=== PATIENT | male | born 1950 | race Caucasian/White ===

== ENCOUNTER → 2017-07-23 | Outpatient (CLI) | payer OTHER | LOC: FIMAGING 12:45 | PROVIDERS: ATTEND Thoracic Surgery (Cardiothoracic Vascular Surgery) | DX: J90 Pleural effusion, not elsewhere classified (principal); Z95.1 Presence of aortocoronary bypass graft ==

== ENCOUNTER 2017-09-08 05:42 | Inpatient (IN) | payer OTHER ==
[2017-09-08] MEDS ORDERED: LIDOCAINE 1% 2 ML INJ ID PRN (06:00)
[2017-09-08] MEDS ORDERED: LR 1,000 ML IV ONE (06:00)
[2017-09-08] MEDS ORDERED: ceFAZolin 2 GM/SWFI 2 GM/20 ML SYR IVP ONE (06:00)
--- NOTE | 2017-09-08 06:39 | PDGENHP ---
History and Physical - Chief Complaint loculated rt pleural effusion - History of Present Illness 67 yo male with CABG in 2015 complicated by recurrent rt pleural effusions, requiring 2 thoracenteses, evaluated for ongoing SOB and exertional dyspnea and found to have a moderate sized rt pleural effusion with loculations and probable trapped lung. No assoc F/C, malaise, cough or orthopnea. Referred for VATS exploration with evacuation of fluid and probable decortication. History Information - Allergies/Home Medication List Allergies/Adverse Reactions: No Allergies [NKDA] Allergy (Verified 09/01/17 14:00) Unknown SEASONAL Allergy (Intermediate, Uncoded 09/27/15 06:56) SNEEZY, ITCHY EYES Home Medications: Herbals/Supplements -Info Only 1 ea PO DAILY 09/27/15 [Last Taken 09/01/17] Rosuvastatin Calcium [Crestor 20mg (*)] 20 mg PO HS 09/27/15 [Last Taken ] Aspirin EC [Aspirin EC 325 mg (*)] 325 mg PO DAILY 11/20/15 [Last Taken 09/01/17 ] Ramipril [Altace 5mg (*)] 5 mg PO HS 08/25/17 [Last Taken 09/06/17] I have personally reviewed and updated: medical history, social history, surgical history - Past Medical History coronary artery disease, hypertension, hyperlipidemia Additional medical history: mild LVSD (EF 45-50%) by echo in 2016. chronic LBBB. metabolic syndrome - Surgical History Reports: coronary bypass surgery (x3 with bilateral mammaries; prophylactic AtriClip ligation left atrial appendage) - Social History Smoking Status: Never smoked Review of Systems Review of Systems: Constitutional: Reports: no symptoms EENMT: Reports: no symptoms Cardiac: Reports: no symptoms Respiratory: Reports: shortness of breath (1 flight of stairs), wheezing ( occasional) Gastrointestinal: Reports: no symptoms Genitourinary: Reports: no symptoms Muscolosketal: Reports: no symptoms Skin: Reports: no symptoms Neurological: Reports: no symptoms Hematologic/Lymphatic: Reports: no symptoms Immunologic/Allergy: Reports: no symptoms Physical Exam Physical Exam: Temp Pulse Resp BP Pulse Ox 36.6 C 83 18 142/97 H 93 09/08/17 06:12 09/08/17 06:12 09/08/17 06:12 09/08/17 06:12 09/08/17 06:12 Constitutional: no apparent distress Eyes: anicteric sclera Ears, Nose, Mouth, Throat: moist mucous membranes, hearing normal Cardiovascular: regular rate and rhythym, other (Well healed median sternotomy and LLE venotomy) Peripheral Pulses: 2+: dorsalis-pedis (R), dorsalis-pedis (L) Respiratory: other (rt sided crackles) Gastrointestinal: normoactive bowel sounds Skin: warm, normal color Musculoskeletal: other (symmetric tone) Neurologic: AAOx3 Psychiatric: interacting appropriately Lab Data & Imaging Review Patient ABO/Rh A NEGATIVE 09/04/17 13:55 Antibody Screen NEGATIVE 09/04/17 13:55 Imaging Review: CT chest Visualized and Interpreted EKG results: Yes EKG Interpretation: Positive for: left bundle branch block, normal sinsus rhythm Assessment & Plan Assessment: symptomatic loculated rt pleural effusion Plan: VATS evac of fluid, +/- pleurodesis, +/- decortication
[2017-09-08] MEDS ORDERED: MIDAZOLAM 2 MG/2 ML VIAL IVP ONE (07:05)
--- NOTE | 2017-09-08 07:09 | PDANEPAE ---
ANE History of Present Illness 67 year for decortication right lung ANE Past Medical History - Cardiovascular History Hx Hypertension: Yes Hx Arrhythmias: No Hx Chest Pain: No Hx Coronary Artery / Peripheral Vascular Disease: Yes Hx CHF / Valvular Disease: No Hx Palpitations: No - Pulmonary History Hx COPD: No Hx Asthma/Reactive Airway Disease: No Hx Recent Upper Respiratory Infection: No Hx Oxygen in Use at Home: No Hx Sleep Apnea: No Sleep Apnea Screening Result - Last Documented: Negative Pulmonary History Comment: SOB w/activity."air gets trapped in R lung" - Neurologic History Hx Cerebrovascular Accident: No Hx Seizures: No Hx Dementia: No - Endocrine History Hx Diabetes: No - Renal History Hx Renal Disorders: No - Liver History Hx Hepatic Disorders: No - Neurological & Psychiatric Hx Hx Neurological and Psychiatric Disorders: No - Cancer History Hx Cancer: No - Congenital Disorder History Hx Congenital Disorders: No - GI History Hx Gastrointestinal Disorders: No - Other Health History Other Health History: none - Chronic Pain History Chronic Pain: No - Surgical History Prior Surgeries: CABG x3 12-15. RT TOTAL KNEE REVISION. KAVYA TOTAL KNEE. KAVYA KNEE SCOPES. RT SHLDR SCOPE. RT BREAST REMVL LIPOMA. APPY. TONSILLECTOMY. UPPP ANE Review of Systems Review of Systems: - Exercise capacity METS (RN): 3 METS - Systems Respiratory: Reports: shortness of breath ANE Patient History - Allergies Allergies/Adverse Reactions: No Allergies [NKDA] Allergy (Verified 09/01/17 14:00) Unknown SEASONAL Allergy (Intermediate, Uncoded 09/27/15 06:56) SNEEZY, ITCHY EYES - Home Medications Home Medications: Herbals/Supplements -Info Only 1 ea PO DAILY 09/27/15 [Last Taken 09/01/17] Rosuvastatin Calcium [Crestor 20mg (*)] 20 mg PO HS 09/27/15 [Last Taken ] Aspirin EC [Aspirin EC 325 mg (*)] 325 mg PO DAILY 11/20/15 [Last Taken 09/01/17 ] Ramipril [Altace 5mg (*)] 5 mg PO HS 08/25/17 [Last Taken 09/06/17] - NPO status NPO Status: no food or drink >8 hours NPO Since - Liquids (Date): 09/07/17 NPO Since - Liquids (Time): 21:00 NPO Since - Solids (Date): 09/07/17 NPO Since - Solids (Time): 18:00 - Anes Hx Anes Hx: no prior problems - Smoking Hx Smoking Status: Never smoked - Alcohol Use Alcohol Use: Other (1-2 drinks a day) ANE Labs/Vital Signs - Vital Signs Blood Pressure: 142/97 Heart Rate: 83 Respiratory Rate: 18 O2 Sat (%): 93 Height: 182.88 cm Weight: 108.862 kg ANE Physical Exam - Airway Neck exam: FROM Mallampati Score: Class 1 Mouth exam: normal dental/mouth exam - Pulmonary Pulmonary: no respiratory distress, clear to auscultation - Cardiovascular Cardiovascular: regular rate and rhythym - ASA Status ASA Status: III ANE Anesthesia Plan Anesthesia Plan: general endotracheal anesthesia Specialized Airway: double lumen tube (Thorasic Epidural)
[2017-09-08] MEDS ORDERED: BUPIVACAINE 0.25% 30 ML SDV ONE ×3 (07:19→12:04)
[2017-09-08] MEDS ORDERED: fentaNYL 100 MCG/2 ML INJ ONE ×2 (07:24→14:13)
[2017-09-08] MEDS ORDERED: PROPOFOL 200 MG/20 ML VIAL ONE (07:24)
[2017-09-08] MEDS ORDERED: ONDANSETRON 4 MG/2 ML VIAL IVP PRN ×2 (08:46→13:59)
[2017-09-08] MEDS ORDERED: NARCOTIC DRIP BAG-TOTAL ALL TYPES EP PRN (08:46)
[2017-09-08] MEDS ORDERED: NALOXONE HCL 0.4 MG/ML INJ IVP PRN ×2 (08:46→13:59)
[2017-09-08] MEDS ORDERED: fentaNYL 50 MCG PATCH TD ONE (11:00)
[2017-09-08] MEDS ORDERED: KETOROLAC 30 MG/1 ML SDV IVP PRN (11:00)
[2017-09-08] MEDS ORDERED: THROMBIN(HUM PLAS)/FIBRINOG/CA 5 ML VIAL TP ONE ×2 (11:14→11:19)
[2017-09-08] MEDS ORDERED: ceFAZolin 1 GM VIAL ONE ×2 (12:11)
[2017-09-08] MEDS ORDERED: BISACODYL 10 MG SUPP PR PRN (13:45)
[2017-09-08] MEDS ORDERED: MAGNESIUM HYDROXIDE 30 ML UDCUP PO PRN (13:45)
[2017-09-08] MEDS ORDERED: POLYETHYLENE GLYCOL 3350 17 GM PKT PO PRN (13:45)
[2017-09-08] MEDS ORDERED: LACTULOSE 20 GM/30 ML UDCUP PO PRN (13:45)
[2017-09-08] MEDS ORDERED: HYDROmorphONE/DILAUDID 1 MG/ML INJ IVP PRN (13:59)
[2017-09-08] MEDS ORDERED: PROMETHAZINE HCL 25 MG/ML INJ IVP PRN (13:59)
[2017-09-08] MEDS ORDERED: ceFAZolin 2 GM/DEXTROSE 100 ML IV SCH (14:00)
--- NOTE | 2017-09-08 14:01 | POSTANESTH ---
Post Anesthetic Evaluation Cardiovascular Status: Normal, Stable Respiratory Status: Normal, Stable Level of Consciousness/Mental Status: Can Participate in Eval, Mildly Sleepy, Arousable Pain Control: Adequate, Prn Tx Ordered Nausea/Vomiting Control: Adequate, Prn Tx Ordered Complications Possibly Related to Anesthesia: None Noted
[2017-09-08] MEDS ORDERED: HYDROmorphONE/DILAUDID 1 MG/ML INJ ONE (14:14)
[2017-09-08] MEDS: fentaNYL 100 MCG/2 ML INJ IVP PRN ×2 (14:16→14:40)
[2017-09-08 14:50] LABS: HEMATOCRIT 44.2 % (40.0-51.0)
[2017-09-08] MEDS ORDERED: HYDROmorphone HCL/NS/PF 0.4 MG/2 ML SYR IVP PRN (16:36)
[2017-09-08] MEDS: DC NARCS MISC SCH (17:34)
[2017-09-08] MEDS: REGARDING ANTICOAG MISC SCH (17:35)
[2017-09-08] MEDS ORDERED: ceFAZolin 2 GM in D5W 100 ML IV SCH (20:00)
[2017-09-08] MEDS: ceFAZolin 2 GM/DEXTROSE 100 ML IV SCH (20:29)
[2017-09-08] MEDS ORDERED: RAMIPRIL 5 MG CAP PO SCH (21:00)
[2017-09-08] MEDS: HYDROmorph 10MCG/ML&BUP 0.0625% in 100ML NS EP SCH (22:25)
[2017-09-09] MEDS: ceFAZolin 2 GM/DEXTROSE 100 ML IV SCH (03:39)
[2017-09-09 06:01] LABS: HEMATOCRIT 44.6 % (40.0-51.0); HEMOGLOBIN 14.9 g/dL (13.7-17.5)
[2017-09-09 06:14] LABS: ANION GAP 14 mEq/L (8-16); CALCIUM 8.3 mg/dL (8.5-10.4); CARBON DIOXIDE 21 mEq/l (22-31); CHLORIDE 104 mEq/L (97-110); CREATININE 1.6 mg/dL (0.7-1.3); GLOMERULAR FILTRATION RATE 43; GLUCOSE 114 mg/dL (70-100); POTASSIUM 5.4 mEq/L (3.5-5.2); SODIUM 139 mEq/L (134-144)
--- NOTE | 2017-09-09 07:34 | SOAPPROG ---
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 Feels a little weird d/t narcotics. Pain well-controlled. Hopeful for ETOH tonight as drinks nightly. Denies agitation. Objective: Vital Signs Temp Pulse Resp BP Pulse Ox 37.1 C 61 14 140/70 H 91 L 09/09/17 07:00 09/09/17 07:00 09/09/17 07:00 09/09/17 07:00 09/09/17 07:00 Laboratory Results 09/09/17 04:45 09/09/17 04:45 09/08/17 09/09/17 09/10/17 05:59 05:59 05:59 Intake Total 3420 Output Total 1340 Balance 2080 Physical Exam - Physical Exam General Appearance: WD/WN, alert, no apparent distress EENT: No scleral icterus (R), No scleral icterus (L) Neck: normal inspection Respiratory: other (CT with air leak ), No respiratory distress Cardiac/Chest: regular rate, rhythm Abdomen: non-tender, soft, No distended Skin: normal color, warm/dry Extremities: No pedal edema Neuro/Psych: no motor/sensory deficits, alert, normal mood/affect, oriented x 3 ICD10 Worksheet Patient Problems: Problems Problem Status Onset CAD (coronary artery disease), [place] coronary artery Acute Pericardial effusion without cardiac tamponade Acute Pleural effusion, right Acute S/P CABG x 3 Acute Dyslipidemia Chronic HTN (hypertension) Chronic
[2017-09-09] MEDS: NS 1,000 ML IV SCH ×2 (08:45→17:05)
[2017-09-09] MEDS: REGARDING ANTICOAG MISC SCH (08:47)
[2017-09-09] MEDS: DC NARCS MISC SCH (08:47)
[2017-09-09] MEDS: HYDROmorph 10MCG/ML&BUP 0.0625% in 100ML NS EP SCH ×2 (08:57→20:57)
[2017-09-09] MEDS ORDERED: ONDANSETRON 4 MG/2 ML VIAL ONE (09:54)
[2017-09-09] MEDS ORDERED: ONDANSETRON 4 MG/2 ML VIAL IVP PRN (10:03)
--- NOTE | 2017-09-09 10:26 | SOAPPROG ---
SOAP Progress Note Assessment/Plan: Assessment: Pt is POD #1 S/P thoracotomy. Thorasic epidural running for post op pain control. Good pain control but some nausea. Plan: Continue epidural. Decrease in fusion rate from 8 to 7. D/C fentanyl patch. PRN fentanyl if pain increases, then reapply patch. PRN zofran. 09/09/17 10:18 Subjective: Pt reports pain 1/10, some nausea, feels sleepy Objective: Vital Signs Temp Pulse Resp BP Pulse Ox 36.9 C 75 16 105/74 96 09/09/17 09:00 09/09/17 09:00 09/09/17 09:00 09/09/17 09:00 09/09/17 09:00 Laboratory Results 09/09/17 04:45 09/09/17 04:45 09/08/17 09/09/17 09/10/17 05:59 05:59 05:59 Intake Total 3420 300 Output Total 1340 Balance 2080 300 Epidural site clean, nontender, dressing intact - Time Spent With Patient Time Spent With Patient: 30 min ICD10 Worksheet Patient Problems: Problems Problem Status Onset CAD (coronary artery disease), [place] coronary artery Acute Pericardial effusion without cardiac tamponade Acute Pleural effusion, right Acute S/P CABG x 3 Acute Dyslipidemia Chronic HTN (hypertension) Chronic
[2017-09-09] MEDS ORDERED: fentaNYL 100 MCG/2 ML INJ IVP PRN (10:32)
[2017-09-09] MEDS: ASPIRIN EC 325 MG TAB PO SCH (12:00)
[2017-09-09 13:08] LABS: POTASSIUM 5.1 mEq/L (3.5-5.2)
--- NOTE | 2017-09-09 13:23 | ASMTCMCOM ---
CM Note CM Note Notes: 09/09/2017 Case Management Note Reviewed chart, spoke w/RN. No case management d/c needs identified d/t pt age, marital status and activity levels prior to admission. There are no PT or OT evals ordered. Anticipating d/c later in the week, pt has chest tube today. Case management d/c poc: Home independent when medically stable with follow up as directed. Case management available if needs change. Date Signed: 09/09/2017 01:23 PM Electronically Signed By:Ana Valenzuela RN
[2017-09-09] MEDS: BEER 1 EACH EA PO SCH ×2 (14:23→19:00)
[2017-09-09] MEDS: HEPARIN 5,000 UNIT/0.5 ML SYR SC SCH ×2 (16:00→21:01)
[2017-09-09] MEDS ORDERED: ZOLPIDEM TARTRATE 5 MG TAB PO PRN (20:40)
[2017-09-09] MEDS ORDERED: MELATONIN 3 MG TAB PO PRN (20:40)
[2017-09-09 20:42] LABS: POTASSIUM 4.6 mEq/L (3.5-5.2)
[2017-09-09] MEDS: ROSUVASTATIN CALCIUM 20 MG TAB PO SCH (20:58)
[2017-09-09] MEDS: SENNOSIDES/DOCUSATE SODIUM TAB PO PRN (20:58)
[2017-09-10] MEDS: NS 1,000 ML IV SCH (02:07)
[2017-09-10 03:36] LABS: ANION GAP 8 mEq/L (8-16); CALCIUM 7.9 mg/dL (8.5-10.4); CARBON DIOXIDE 26 mEq/l (22-31); CHLORIDE 101 mEq/L (97-110); CREATININE 0.9 mg/dL (0.7-1.3); GLOMERULAR FILTRATION RATE > 60; GLUCOSE 98 mg/dL (70-100); POTASSIUM 4.8 mEq/L (3.5-5.2); SODIUM 135 mEq/L (134-144)
[2017-09-10] MEDS: HYDROmorph 10MCG/ML&BUP 0.0625% in 100ML NS EP SCH ×2 (07:56→19:59)
--- NOTE | 2017-09-10 08:17 | SOAPPROG ---
SOAP Progress Note Assessment/Plan: Assessment: Plan: 09/10/17 08:15 CXR w/o ptx pain controlled will leave epidural until tomorrow resume sq heparin air leak w cough Objective: Vital Signs Temp Pulse Resp BP Pulse Ox 36.6 C 99 16 106/79 96 09/10/17 08:00 09/10/17 08:00 09/10/17 08:00 09/10/17 08:00 09/10/17 08:00 Laboratory Results 09/09/17 04:45 09/10/17 03:10 09/09/17 09/10/17 09/11/17 05:59 05:59 05:59 Intake Total 3420 5250 Output Total 1340 1645 Balance 2080 3605 ICD10 Worksheet Patient Problems: Problems Problem Status Onset CAD (coronary artery disease), [place] coronary artery Acute Pericardial effusion without cardiac tamponade Acute Pleural effusion, right Acute S/P CABG x 3 Acute Dyslipidemia Chronic HTN (hypertension) Chronic
[2017-09-10] MEDS: DC NARCS MISC SCH (09:06)
[2017-09-10] MEDS: REGARDING ANTICOAG MISC SCH (09:06)
[2017-09-10] MEDS: ASPIRIN EC 325 MG TAB PO SCH (09:06)
[2017-09-10] MEDS: BEER 1 EACH EA PO SCH ×2 (15:08→21:14)
[2017-09-10] MEDS: HEPARIN 5,000 UNIT/0.5 ML SYR SC SCH ×2 (15:08→19:59)
--- NOTE | 2017-09-10 15:22 | SOAPPROG ---
SOAP Progress Note Assessment/Plan: Assessment: Pt is POD #1 S/P thoracotomy. Thorasic epidural running for post op pain control. Good pain control but some nausea. Plan: Continue epidural. Decrease in fusion rate from 8 to 7. D/C fentanyl patch. PRN fentanyl if pain increases, then reapply patch. PRN zofran. 09/09/17 10:18 09/10/17 15:20 Plan continue epidural for pain control at current settings. Possible D/C tomorrow Subjective: Pt reports excellent pain control, no nausea and clear head Objective: Vital Signs Temp Pulse Resp BP Pulse Ox 37.1 C 77 16 95/66 L 95 09/10/17 11:58 09/10/17 11:58 09/10/17 11:58 09/10/17 11:58 09/10/17 11:58 Laboratory Results 09/09/17 04:45 09/10/17 03:10 09/09/17 09/10/17 09/11/17 05:59 05:59 05:59 Intake Total 3420 5250 Output Total 1340 1645 300 Balance 2080 3605 -300 Epidural site clean, dressing intact, nontender. Pt A&O X 3 - Time Spent With Patient Time Spent With Patient: 20 minutes ICD10 Worksheet Patient Problems: Problems Problem Status Onset CAD (coronary artery disease), [place] coronary artery Acute Pericardial effusion without cardiac tamponade Acute Pleural effusion, right Acute S/P CABG x 3 Acute Dyslipidemia Chronic HTN (hypertension) Chronic
--- NOTE | 2017-09-10 18:32 | GOP ---
[f rep st] OPERATIVE REPORT DATE OF OPERATION: 09/08/2017 SURGEON: Davis Monsalve DO MAGAZINE WRITER: Nay Rucker PA-C ANESTHESIOLOGIST: Mazin Lake MD. PREOPERATIVE DIAGNOSIS: A trapped lung in the right chest. POSTOPERATIVE DIAGNOSIS: A trapped lung in the right chest. PROCEDURE PERFORMED: Right thoracotomy, video-assisted, with extensive decortication. Approximately 6 hours were spent intraoperatively decorticating and was extremely complicated. FINDINGS: DESCRIPTION OF PROCEDURE: Patient had undergone previous coronary artery bypass grafting approximately a year and a half prior. He had a delayed recurrent right pleural effusion, which was not addressed. He presented with a trapped lung one year later. He was consented, brought to the operating room, intubated, and monitoring lines were placed. He was prepped and draped in sterile classical manner in the lateral decubitus position. I then performed a muscle-sparing 6th intercostal space mini-thoracotomy in the anterior axillary line. I then spent a great deal of time identifying structures and diaphragm. There was a half-inch firm fibrinous peel. There was approximately 500 cc of fluid in there. I spent approximately 6 hours identifying mediastinal structures. The patient had a previous right internal mammary artery and we had to avoid that as well. We were then able to free up the entire lung and decorticated to get full re-expansion. There were several sites were the peel was adherent to the lung. We just made linear hash tag crisscrossing incisions down into the lung to allow it to expand. The lung was fully re-expanded. When completed, the chamber was copiously irrigated. Two chest tubes were placed. Sternal wires were used to approximate the intercostal spaces because of this patient's large size and powerful build. Muscle and subcu were closed in standard fashion. It should be noted, Marcaine was used to infiltrate the intercostal spaces as well as we cryo-ablated 4 levels of intercostal nerve for intermediate pain control. The skin was closed in a standard fashion. Patient was returned to recovery room in stable condition. /[id number]/MODL MTDD
[2017-09-10] MEDS: ROSUVASTATIN CALCIUM 20 MG TAB PO SCH (19:58)
[2017-09-11 04:14] LABS: POTASSIUM 4.3 mEq/L (3.5-5.2)
--- NOTE | 2017-09-11 07:58 | SOAPPROG ---
SOAP Progress Note Assessment/Plan: Assessment: Plan: 09/10/17 08:15 CXR w/o ptx pain controlled will leave epidural until tomorrow resume sq heparin air leak w cough 09/11/17 07:57 CXR good pain controlled, Dr Lake to manage epidural/sq heparin no air leak, DC suction ambulate, stay out of bed Objective: Vital Signs Temp Pulse Resp BP Pulse Ox 37.1 C 82 16 103/69 95 09/11/17 07:00 09/11/17 07:00 09/11/17 07:00 09/11/17 07:00 09/11/17 07:00 Laboratory Results 09/09/17 04:45 09/11/17 03:38 09/10/17 09/11/17 09/12/17 05:59 05:59 05:59 Intake Total 5250 620 Output Total 8488 1415 Balance 3545 -913 ICD10 Worksheet Patient Problems: Problems Problem Status Onset CAD (coronary artery disease), [place] coronary artery Acute Pericardial effusion without cardiac tamponade Acute Pleural effusion, right Acute S/P CABG x 3 Acute Dyslipidemia Chronic HTN (hypertension) Chronic
[2017-09-11] MEDS: fentaNYL 50 MCG PATCH TD SCH (08:11)
[2017-09-11] MEDS: HYDROmorph 10MCG/ML&BUP 0.0625% in 100ML NS EP SCH (08:14)
--- NOTE | 2017-09-11 09:49 | SOAPPROG ---
SOAP Progress Note Assessment/Plan: Assessment: Pt is POD #1 S/P thoracotomy. Thorasic epidural running for post op pain control. Good pain control but some nausea. Plan: Continue epidural. Decrease in fusion rate from 8 to 7. D/C fentanyl patch. PRN fentanyl if pain increases, then reapply patch. PRN zofran. 09/09/17 10:18 09/10/17 15:20 Plan continue epidural for pain control at current settings. Possible D/C tomorrow 09/11/17 09:50 Epidural d/jerome. Catheter removed with tip intact. Oral pain meds available per surgery team. fentanyl patch placed per surgery team. Subjective: Pt reports good pain control after epidural turned down to 3 and fentanyl patch applied. No nausea. Feels alert. Good spirits. Objective: Vital Signs Temp Pulse Resp BP Pulse Ox 37.1 C 82 16 103/69 95 09/11/17 07:00 09/11/17 07:00 09/11/17 07:00 09/11/17 07:00 09/11/17 07:00 Laboratory Results 09/09/17 04:45 09/11/17 03:38 09/10/17 09/11/17 09/12/17 05:59 05:59 05:59 Intake Total 5250 620 Output Total 1645 1415 Balance 3605 -795 Epidural site clean with dressing intact. Nontender - Time Spent With Patient Time Spent With Patient: 15 min ICD10 Worksheet Patient Problems: Problems Problem Status Onset CAD (coronary artery disease), [place] coronary artery Acute Pericardial effusion without cardiac tamponade Acute Pleural effusion, right Acute S/P CABG x 3 Acute Dyslipidemia Chronic HTN (hypertension) Chronic
[2017-09-11] MEDS: BEER 1 EACH EA PO SCH ×2 (11:54→19:52)
[2017-09-11] MEDS: REGARDING ANTICOAG MISC SCH (11:55)
[2017-09-11] MEDS: DC NARCS MISC SCH (11:55)
[2017-09-11] MEDS: ASPIRIN EC 325 MG TAB PO SCH (15:10)
[2017-09-11] MEDS: HEPARIN 5,000 UNIT/0.5 ML SYR SC SCH ×2 (15:10→20:50)
[2017-09-11] MEDS: ROSUVASTATIN CALCIUM 20 MG TAB PO SCH (20:50)
[2017-09-12 04:51] LABS: POTASSIUM 4.4 mEq/L (3.5-5.2)
[2017-09-12] MEDS: HEPARIN 5,000 UNIT/0.5 ML SYR SC SCH ×3 (04:56→20:53)
--- NOTE | 2017-09-12 09:48 | SOAPPROG ---
SOAP Progress Note Assessment/Plan: Assessment: Plan: 09/10/17 08:15 CXR w/o ptx pain controlled will leave epidural until tomorrow resume sq heparin air leak w cough 09/11/17 07:57 CXR good pain controlled, Dr Lake to manage epidural/sq heparin no air leak, DC suction ambulate, stay out of bed 09/12/17 09:47 no pain no air leak, but fluctuation in tube, will resume suction when not ambulating CXR as expected, no ptx Objective: Vital Signs Temp Pulse Resp BP Pulse Ox 37.0 C 77 18 112/76 89 L 09/12/17 08:00 09/12/17 08:00 09/12/17 08:00 09/12/17 08:00 09/12/17 08:00 Laboratory Results 09/09/17 04:45 09/12/17 04:23 09/11/17 09/12/17 09/13/17 05:59 05:59 05:59 Intake Total 620 900 Output Total 0370 1295 Balance -795 -395 ICD10 Worksheet Patient Problems: Problems Problem Status Onset CAD (coronary artery disease), [place] coronary artery Acute Pericardial effusion without cardiac tamponade Acute Pleural effusion, right Acute S/P CABG x 3 Acute Dyslipidemia Chronic HTN (hypertension) Chronic
[2017-09-12] MEDS: ASPIRIN EC 325 MG TAB PO SCH (10:20)
--- NOTE | 2017-09-12 10:57 | ASMTCMCOM ---
CM Note CM Note Notes: 09/12/2017 Case Management Note Discussed with RN, reviewed chart. Pt ambulates without difficulty. CT to suction today. There are no PT or OT evals ordered. Case Management d/c poc: remains home independent when medically stable. Case Managment available if needs change. Date Signed: 09/12/2017 10:56 AM Electronically Signed By:Ana Valenzuela RN
[2017-09-12] MEDS: BEER 1 EACH EA PO SCH ×2 (11:03→18:20)
[2017-09-12] MEDS: OXYCODONE/APAP 5/325 TAB PO PRN ×3 (11:57→22:55)
[2017-09-12] MEDS: SENNOSIDES/DOCUSATE SODIUM TAB PO PRN (15:50)
[2017-09-12] MEDS: ROSUVASTATIN CALCIUM 20 MG TAB PO SCH (20:53)
[2017-09-13] MEDS: HEPARIN 5,000 UNIT/0.5 ML SYR SC SCH ×3 (06:03→21:05)
[2017-09-13] MEDS: OXYCODONE/APAP 5/325 TAB PO PRN ×2 (06:49→17:20)
[2017-09-13] MEDS: BEER 1 EACH EA PO SCH ×2 (07:49→21:03)
[2017-09-13] MEDS: ASPIRIN EC 325 MG TAB PO SCH (07:49)
--- NOTE | 2017-09-13 10:36 | SOAPPROG ---
SOAP Progress Note Assessment/Plan: Assessment: Plan: 09/10/17 08:15 CXR w/o ptx pain controlled will leave epidural until tomorrow resume sq heparin air leak w cough 09/11/17 07:57 CXR good pain controlled, Dr Lake to manage epidural/sq heparin no air leak, DC suction ambulate, stay out of bed 09/12/17 09:47 no pain no air leak, but fluctuation in tube, will resume suction when not ambulating CXR as expected, no ptx 09/13/17 10:35 no pain VSS 190 cc serous, no air leak, CXR stable clamp CT, DC am if CXR ok and DC Objective: Vital Signs Temp Pulse Resp BP Pulse Ox 36.8 C 74 16 104/69 80 L 09/13/17 07:16 09/13/17 07:16 09/13/17 07:16 09/13/17 07:16 09/13/17 09:43 Laboratory Results 09/09/17 04:45 09/12/17 04:23 09/12/17 09/13/17 09/14/17 05:59 05:59 05:59 Intake Total 900 800 Output Total 1295 190 Balance -395 610 ICD10 Worksheet Patient Problems: Problems Problem Status Onset CAD (coronary artery disease), [place] coronary artery Acute Pericardial effusion without cardiac tamponade Acute Pleural effusion, right Acute S/P CABG x 3 Acute Dyslipidemia Chronic HTN (hypertension) Chronic
[2017-09-13] MEDS: traMADol 50 MG TAB PO PRN (21:03)
[2017-09-13] MEDS: ROSUVASTATIN CALCIUM 20 MG TAB PO SCH (21:05)
[2017-09-13 23:04] VITALS: RESP 16
[2017-09-14] MEDS: OXYCODONE/APAP 5/325 TAB PO PRN (01:07)
[2017-09-14] MEDS: traMADol 50 MG TAB PO PRN (06:42)
[2017-09-14] MEDS: HEPARIN 5,000 UNIT/0.5 ML SYR SC SCH (06:43)
[2017-09-14] MEDS: BEER 1 EACH EA PO SCH (07:00)
[2017-09-14 07:21] VITALS: BP 120/76; PULSE 77; TEMP 98.4
[2017-09-14] MEDS: fentaNYL 50 MCG PATCH TD SCH (07:46)
[2017-09-14] MEDS: ASPIRIN EC 325 MG TAB PO SCH (07:46)
[2017-09-14] MEDS ORDERED: KETOROLAC 30 MG/1 ML SDV IVP ONE (08:15)
--- NOTE | 2017-09-14 08:29 | SOAPPROG ---
SOAP Progress Note Assessment/Plan: Assessment: Plan: 09/10/17 08:15 CXR w/o ptx pain controlled will leave epidural until tomorrow resume sq heparin air leak w cough 09/11/17 07:57 CXR good pain controlled, Dr Lake to manage epidural/sq heparin no air leak, DC suction ambulate, stay out of bed 09/12/17 09:47 no pain no air leak, but fluctuation in tube, will resume suction when not ambulating CXR as expected, no ptx 09/13/17 10:35 no pain VSS 190 cc serous, no air leak, CXR stable clamp CT, DC am if CXR ok and DC 09/14/17 08:28 doing well CXR stable w tubes clamped, DCd DC home, CXR/ follow up Friday CXR Objective: Vital Signs Temp Pulse Resp BP Pulse Ox 36.9 C 77 16 120/76 95 09/14/17 07:14 09/14/17 07:14 09/14/17 07:14 09/14/17 07:14 09/14/17 07:14 Laboratory Results 09/09/17 04:45 09/12/17 04:23 09/13/17 09/14/17 09/15/17 05:59 05:59 05:59 Intake Total 800 400 Output Total 190 300 Balance 610 100 ICD10 Worksheet Patient Problems: Problems Problem Status Onset CAD (coronary artery disease), [place] coronary artery Acute Pericardial effusion without cardiac tamponade Acute Pleural effusion, right Acute S/P CABG x 3 Acute Dyslipidemia Chronic HTN (hypertension) Chronic
[2017-09-14 08:56] VITALS: O2SAT 80
--- NOTE | 2017-09-14 08:56 | PDHOMEO2F ---
Home Oxygen Face to Face Home Orders: I certify that a physician or a nurse practitioner or physician's education administrative assistant has had a [id number] encounter with this patient on the date of this order due to the diagnosis listed, which relates to the primary reason the patient requires home oxygen. Alternative treatments have been tried, or considered, and deemed ineffective. It is anticipated that supplemental oxygen will result in improvement with treatment. Home oxygen qualifying diagnosis: CAD Home oxygen secondary diagnosis: trapped lung SpO2 on room air (%): <86% Frequency of home oxygen needed: continuous Home oxygen liters per minute: 2 Home oxygen delivery device: nasal cannula Concentrator: Yes E-tanks for mobility and back up: Yes If ordering portable O2, is the patient mobile in the home?: Yes I certify that, based on these findings, the home oxygen is medically necessary for this patient for the following length of time. Length of time home oxygen needed: 1 month
--- NOTE | 2017-09-14 12:49 | PDDCSUM ---
Discharge Summary Discharge Summary: DATE OF ADMISSION: 09/08/17 DATE OF DISCHARGE: 09/14/17 DISPOSITION: Home, self care PRINCIPAL ADMISSION DIAGNOSIS: Loculated right pleural effusion with trapped lung PRINCIPAL DISCHARGE DIAGNOSES: Status post right thoracotomy with evacuation of pleural fluid and extensive decortication HISTORY OF PRESENT ILLNESS: 67 yo male with CABG in 2015 complicated by recurrent right sided pleural effusions, evaluated for ongoing exertional dyspnea and found to have a small to moderate sized right pleural effusion with loculations and pleural thickening. Suspected to have trapped lung and admitted for elective decortication. PERTINENT PAST MEDICAL HISTORY: CABG x 3 (KAMARA-RI, free TEN-AM, SV-OM1) 09/27/15 with 1400 ml rt thoracentesis on 11/21/15 and 500 ml rt thoracentesis on 01/24/16; CAD with mild cardiomyopathy (EF 45-50%), chronic LBBB, HTN, dyslipidemia, metabolic syndrome MEDICATIONS ON ADMISSION: ASA 325 mg daily, Crestor 20 mg HS, Ramipril 5 mg HS, herbal supplement daily ALLERGIES/SENSITIVITIES: NKDA CONSULTANTS: none PROCEDURES/IMAGIN09/08/17 (Gricel): Right thoracotomy with video assisted decortication of right lung and drainage of pleural fluid. Thoracic epidural per anesthesia. ABBREVIATED HOSPITAL COURSE BY ACTIVE PROBLEM LIST: 1. Trapped right lung - Successful re-expansion post decortication. Extubated in the OR. Pain well controlled with epidural and multimodal analgesia. No significant air leak or delay in chest tube removal. 2. Stable CAD/ISCM - Secondary prevention with ASA and statin. BP relatively low on narcotic analgesics and ACEI held. DISCHARGE MEDICATIONS: As on admission with the following adjustments: 1. Hold Ramipril until SBP consistently > 120 NEW prescriptions: 1. Duragesic patch 50 mcg, applied 09/14/17 2. Tramadol 50-100 mg q 6hr prn incisional discomfort. 3. Oxygen continuously @ 2 Lpm, or as directed by SpO2. FOLLOW UP APPOINTMENTS: 1. CV surgery: with Dr Monsalve at [facility] on 09/16/17. Office to call with appointment time. FOLLOW UP TESTING: CXR prior to surgical appointment.
--- NOTE | 2017-09-14 13:55 | ASDISCHSUM ---
Discharge Information Plan Status:Home with No Needs Medically Cleared to Leave:09/13/2017 Discharge Date:09/14/2017 12:25 PM CM D/C Disposition:Home, Routine, Self-Care ADT D/C Disposition:Home, Routine, Self-Care Projected Discharge Date:09/14/2017 12:25 PM Transportation at D/C:Family Discharge Delay Reason: Follow-Up Date:09/14/2017 12:25 PM Discharge Slot: Final Diagnosis: Placement Information Patient Contact Information Contact Name:GALINDO Relationship: Address:[address] [facility] City:[place] Alternate Phone: State/Zip Code:[place] [address] Email: Financial Information Financial Class: Primary Plan Desc:MEDICARE INPATIENT Primary Plan Number:[id number] Secondary Plan Desc:PROSPER Secondary Plan Number:[id number] Assessment Information [facility] CM Progress Note CM Note CM Note Notes: 09/09/2017 Case Management Note Reviewed chart, spoke w/RN. No case management d/c needs identified d/t pt age, marital status and activity levels prior to admission. There are no PT or OT evals ordered. Anticipating d/c later in the week, pt has chest tube today. Case management d/c poc: Home independent when medically stable with follow up as directed. Case management available if needs change. Date Signed: 09/09/2017 01:23 PM Electronically Signed By:Ana Valenzuela RN [facility] CM Progress Note CM Note CM Note Notes: 09/12/2017 Case Management Note Discussed with RN, reviewed chart. Pt ambulates without difficulty. CT to suction today. There are no PT or OT evals ordered. Case Management d/c poc: remains home independent when medically stable. Case Managment available if needs change. Date Signed: 09/12/2017 10:56 AM Electronically Signed By:Ana Valenzuela RN Case Management Discharge Plan Note Case Management Discharge Discharge Order Complete? Answers: Yes Patient to Obtain Answers: Independently Medications Transportation Arranged Answers: Family/Friends Discharge Comments Notes: Pt discharging home today. No CM needs identifiied. Date Signed: 09/14/2017 01:52 PM Electronically Signed By:ALEXANDRIA Martin Intervention Information
== END 2017-09-14 12:25 | disposition home or self-care (01) | DRG 165 ==
LOC: F3E 05:42 → F2W 16:02
PROVIDERS: ADMIT Thoracic Surgery (Cardiothoracic Vascular Surgery); ATTEND Thoracic Surgery (Cardiothoracic Vascular Surgery)
PROC: 0W9930Z Drainage of Right Pleural Cavity with Drainage Device, Percutaneous Approach (ICD-10-PCS; principal; 2017-09-08 07:15)
PROC: 3E0S3BZ Introduction of Anesthetic Agent into Epidural Space, Percutaneous Approach (ICD-10-PCS; principal; 2017-09-08 07:15)
PROC: 0BNK0ZZ Release Right Lung, Open Approach (ICD-10-PCS; principal; 2017-09-08 07:15)
DX: J90 Pleural effusion, not elsewhere classified (principal); I25.10 Atherosclerotic heart disease of native coronary artery without angina pectoris; I10 Essential (primary) hypertension; E78.5 Hyperlipidemia, unspecified; Z95.1 Presence of aortocoronary bypass graft
CPT/HCPCS: J0171; J0690; J1170; J1885; J2250; J2405; J2704; J3010

== ENCOUNTER → 2017-09-16 | Outpatient (CLI) | payer OTHER | LOC: FIMAGING 10:51 | PROVIDERS: ATTEND Thoracic Surgery (Cardiothoracic Vascular Surgery) | DX: J98.19 Other pulmonary collapse (principal); Z09 Encounter for follow-up examination after completed treatment for conditions other than malignant neoplasm ==

== ENCOUNTER → 2017-09-23 | Outpatient (CLI) | payer OTHER | LOC: FIMAGING 10:40 | PROVIDERS: ATTEND Thoracic Surgery (Cardiothoracic Vascular Surgery) | DX: J94.8 Other specified pleural conditions (principal); Z98.890 Other specified postprocedural states ==

== ENCOUNTER → 2017-10-07 | Outpatient (CLI) | payer OTHER | LOC: FIMAGING 10:44 | PROVIDERS: ATTEND Thoracic Surgery (Cardiothoracic Vascular Surgery) | DX: J94.8 Other specified pleural conditions (principal) ==

== ENCOUNTER → 2017-11-18 | Outpatient (CLI) | payer OTHER | LOC: FIMAGING 10:15 | PROVIDERS: ATTEND Thoracic Surgery (Cardiothoracic Vascular Surgery) | DX: Z09 Encounter for follow-up examination after completed treatment for conditions other than malignant neoplasm (principal); Z98.890 Other specified postprocedural states ==

== ENCOUNTER 2018-02-24 05:46 | Day surgery (SDC) | payer OTHER ==
[2018-02-24] MEDS ORDERED: ceFAZolin 2 GM/SWFI 2 GM/20 ML SYR IVP ONE (06:07)
[2018-02-24] MEDS ORDERED: LR 1,000 ML IV ONE (06:08)
[2018-02-24] MEDS ORDERED: LIDOCAINE 1% 2 ML INJ ID PRN (06:08)
--- NOTE | 2018-02-24 06:57 | PDGENHP ---
History & Physical Chief Complaint: sternal pain History of Present Illness: s/p remote CABG with sternal pain here for sternal wire removal Pertinent Past, Social, Family History: CABG Relevant Physical Exam: NAD/WN/WD. S1S2, sternotomy well-healed, TTP midline. No resp distress. ND, soft, NTP. LE without edema BL
--- NOTE | 2018-02-24 07:05 | PDANEPAE ---
ANE History of Present Illness Patient presents for sternal wire removal. ANE Past Medical History - Cardiovascular History Hx Hypertension: Yes Hx Arrhythmias: No Hx Chest Pain: No Hx Coronary Artery / Peripheral Vascular Disease: Yes Hx CHF / Valvular Disease: No Hx Palpitations: No Cardiovascular History Comment: cabg x 3 2015 - Pulmonary History Hx COPD: No Hx Asthma/Reactive Airway Disease: Yes Hx Recent Upper Respiratory Infection: No Hx Oxygen in Use at Home: No Hx Sleep Apnea: Yes Sleep Apnea Screening Result - Last Documented: Positive Pulmonary History Comment: SOB w/activity."air gets trapped in R lung" - Neurologic History Hx Cerebrovascular Accident: No Hx Seizures: No Hx Dementia: No - Endocrine History Hx Diabetes: No - Renal History Hx Renal Disorders: No - Liver History Hx Hepatic Disorders: No - Neurological & Psychiatric Hx Hx Neurological and Psychiatric Disorders: No - Cancer History Hx Cancer: No - Congenital Disorder History Hx Congenital Disorders: No - GI History Hx Gastrointestinal Disorders: No - Other Health History Other Health History: none - Chronic Pain History Chronic Pain: Yes (right shoulder) - Surgical History Prior Surgeries: CABG x3 -15. RT TOTAL KNEE REVISION. KAVYA TOTAL KNEE. KAVYA KNEE SCOPES. RT SHLDR SCOPE. RT BREAST REMVL LIPOMA. APPY. TONSILLECTOMY. UPPP ANE Review of Systems Review of Systems: - Exercise capacity Exercise capacity: >=4 METS METS (RN): 5 METS ANE Patient History - Allergies Allergies/Adverse Reactions: No Allergies [NKDA] Allergy (Verified 02/23/18 16:49) Unknown SEASONAL Allergy (Intermediate, Uncoded 02/23/18 16:49) SNEEZY, ITCHY EYES - Home Medications Home medications: home medication list seen and reviewed Home Medications: Herbals/Supplements -Info Only 09/27/15 [Last Taken 02/23/18 08:00] Rosuvastatin Calcium [Crestor 20mg (*)] 09/27/15 [Last Taken 02/23/18 21:00] Aspirin EC [Aspirin EC 325 mg (*)] 11/20/15 [Last Taken 02/23/18 08:00] Ramipril 02/23/18 [Last Taken 02/23/18 21:00] - NPO status NPO Status: no food or drink >8 hours NPO Since - Liquids (Date): 02/23/18 NPO Since - Liquids (Time): 21:00 NPO Since - Solids (Date): 02/23/18 NPO Since - Solids (Time): 20:00 - Anes Hx Anes Hx: post operative nausea - Smoking Hx Smoking Status: Never smoked - Family Anes Hx Family Hx Anesthesia Complications: none ANE Labs/Vital Signs - Vital Signs Blood Pressure: 120/79 Heart Rate: 81 Respiratory Rate: 16 O2 Sat (%): 92 Height: 182.88 cm Weight: 104.326 kg ANE Physical Exam - Airway Neck exam: FROM Mallampati Score: Class 1 - Pulmonary Pulmonary: no respiratory distress - Cardiovascular Cardiovascular: regular rate and rhythym - ASA Status ASA Status: III ANE Anesthesia Plan Anesthesia Plan: GA w LMA (RBA discussed)
[2018-02-24] MEDS ORDERED: fentaNYL 100 MCG/2 ML INJ ONE (07:09)
[2018-02-24] MEDS ORDERED: PROPOFOL 200 MG/20 ML VIAL ONE (07:09)
[2018-02-24] MEDS ORDERED: BUPIVACAINE 0.25% 30 ML SDV ONE (07:21)
[2018-02-24] MEDS ORDERED: MIDAZOLAM 2 MG/2 ML VIAL ONE (07:22)
[2018-02-24] MEDS ORDERED: LR 500 ML IV PRN (07:55)
[2018-02-24] MEDS ORDERED: ONDANSETRON 4 MG/2 ML VIAL IVP PRN (07:55)
[2018-02-24] MEDS ORDERED: NALOXONE HCL 0.4 MG/ML INJ IVP PRN (07:55)
--- NOTE | 2018-02-24 07:57 | POSTANESTH ---
Post Anesthetic Evaluation Cardiovascular Status: Similar to Pre-Op Cond Respiratory Status: Similar to Pre-op Cond. Level of Consciousness/Mental Status: Can Participate in Eval Pain Control: Adequate, Prn Tx Ordered Nausea/Vomiting Control: Adequate, Prn Tx Ordered Complications Possibly Related to Anesthesia: None Noted
[2018-02-24 09:25] VITALS: BP 123/78
--- NOTE | 2018-02-26 16:05 | GOP ---
[f rep st] OPERATIVE REPORT DATE OF OPERATION: 02/24/2018 SURGEON: Davis Monsalve DO HOME CARE AIDE: Jairon Goldberg PA-C ANESTHESIOLOGIST: Dipesh Trent MD PREOPERATIVE DIAGNOSIS: Sternal discomfort secondary to a sternal band. POSTOPERATIVE DIAGNOSIS: Sternal discomfort secondary to a sternal band. PROCEDURE PERFORMED: Removal of sternal bands. FINDINGS: INDICATIONS: The patient presented with discomfort due to protrusion of the sternal band from previo us sternotomy. DESCRIPTION OF PROCEDURE: He was brought to the operating room with monitored local anesthetic. Abran rter percent Marcaine was used to infiltrate the subcutaneous tissues. An incision was placed over t he band, the band was transected. The band was removed. The wound was closed. Dressings were appli ed. The patient was returned to recovery in stable condition. /[id number]/MODL
== END 2018-02-24 09:30 | disposition home or self-care (01) ==
LOC: FSGY 05:46
PROVIDERS: ATTEND Thoracic Surgery (Cardiothoracic Vascular Surgery)
PROC: 0PP004Z Removal of Internal Fixation Device from Sternum, Open Approach (ICD-10-PCS; principal; 2018-02-24 07:15)
DX: T81.89XA Other complications of procedures, not elsewhere classified, initial encounter (principal); R07.89 Other chest pain; Y82.8 Other medical devices associated with adverse incidents; I10 Essential (primary) hypertension; Z95.1 Presence of aortocoronary bypass graft; Z96.651 Presence of right artificial knee joint
CPT/HCPCS: J0690; J2250; J2704; J3010